=== PATIENT | female | born 1975 | race Caucasian/White ===

== ENCOUNTER 2018-06-08 18:25 | Emergency (ER) | payer OTHER ==
[2018-06-08] MEDS ORDERED: Sodium Chloride 0.9% 1,000 ML IV STA (20:35)
[2018-06-08 21:08] LABS: SQUAMOUS EPITHIAL 10 /hpf (0-5); URINE BACTERIA RARE (<OCC); URINE BILIRUBIN NEGATIVE (NEGATIVE); URINE BLOOD LARGE (NEGATIVE); URINE CLARITY CLOUDY (Clear); URINE COLOR YELLOW (YELLOW); URINE GLUCOSE (UA) NEG (Normal); URINE LEUKOCYTE ESTERASE TRACE Leu/uL (Negative); URINE PROTEIN NEGATIVE (NEGATIVE); URINE UROBILINOGEN 0.2-1.0 mg/dL (0.2-1.0)
[2018-06-08 21:09] LABS: BASO % 0.5 % (0.0-2.0); EOS # 0.2 K/uL (0.0-0.7); EOS % 3.4 % (0.0-4.0); HEMOGLOBIN 14.6 g/dL (12.0-16.0); LYMPH # 1.3 K/uL (1.0-4.3); LYMPH % 24.3 % (20.0-40.0); MEAN CELL VOLUME 93.7 fl (81.0-99.0); MEAN CORPUSCULAR HEMOGLOBIN 31.9 pg (27.0-31.0); MEAN CORPUSCULAR HGB CONC 34.1 g/dL (33.0-37.0); MEAN PLATELET VOLUME 6.8 fl (7.2-11.7); MONO # 0.6 K/uL (0.0-0.8); MONO % 11.5 % (0.0-10.0); NEUT # 3.2 K/uL (1.8-7.0); NEUT % 60.3 % (50.0-75.0); RBC 4.57 Mil/uL (3.80-5.20); RED CELL DISTRIBUTION WIDTH 13.2 % (11.5-14.5); WHITE BLOOD COUNT 5.3 K/uL (4.8-10.8)
[2018-06-08 21:10] LABS: VENOUS BLOOD GAS BASE EXCESS 0.8 mmol/L (0.0-2.0); VENOUS BLOOD GAS PCO2 39 mmHg (40-60); VENOUS BLOOD GAS PO2 38 mm/Hg (30-55); VENOUS BLOOD PH 7.42 (7.32-7.43)
[2018-06-08 21:18] LABS: BLOOD UREA NITROGEN 13 mg/dl (7-17); CALCIUM 9.3 mg/dL (8.4-10.2); GFR NON-AFRICAN AMERICAN > 60
--- NOTE | 2018-06-08 21:39 | ED PDOC ---
HPI: Back Time Seen by Provider: 06/08/18 20:01 Chief Complaint (Nursing): Back Pain Chief Complaint (Provider): Back Pain History Per: Patient History/Exam Limitations: no limitations Onset/Duration Of Symptoms: Days (x6) Current Symptoms Are (Timing): Still Present Additional Complaint(s): 43 year old female arrives to ED with complaints of bodyaches, chills, subjective fever, stabbing lower back pain bilaterally and abdominal pain described as "twisting" since 06/02/18. Patient was seen at an Urgent Care on 3 days ago and prescribed Levaquin once daily to treat a UTI. Subsequently, she reports minimal relief after 3 days of use, thus, prompting ED visit. Presently , she denies any fever, chills, or urinary complaints and states she only feels better with Dilaudid. PMD: none provided Past Medical History Reviewed: Historical Data, Nursing Documentation, Vital Signs Vital Signs: Last Vital Signs Temp 99.7 F H 06/08/18 18:50 Pulse 89 06/08/18 18:50 Resp 18 06/08/18 18:50 BP 127/84 06/08/18 18:50 Pulse Ox 98 06/08/18 18:50 - Medical History PMH: No Chronic Diseases - Surgical History Surgical History: No Surg Hx - Family History Family History: States: Unknown Family Hx - Home Medications Home Medications: Ambulatory Orders Medication Instructions Recorded Cyclobenzaprine [Cyclobenzaprine 10 mg PO BID #15 tab 06/08/18 HCl] Ketorolac Tromethamine [Toradol] 10 mg PO BID #20 tab 06/08/18 traMADol [Ultram] 50 mg PO TID #12 tab 06/08/18 - Allergies Allergies/Adverse Reactions: Allergies Allergy/AdvReac Type Severity Reaction Status Date / Time [place] Allergy ANAPHYLAXIS Verified 06/08/18 18:50 Sulfa (Sulfonamide Allergy ANAPHYLAXIS Verified 06/08/18 18:50 Antibiotics) Review of Systems ROS Statement: Except As Marked, All Systems Reviewed And Found Negative Constitutional: Positive for: Fever, Chills (subjective), Other (bodyaches) Gastrointestinal: Positive for: Abdominal Pain ("twisting") Genitourinary Female: Negative for: Dysuria, Frequency, Incontinence, Hematuria Musculoskeletal: Positive for: Back Pain (lower bilaterally) Physical Exam - Reviewed Nursing Documentation Reviewed: Yes Vital Signs Reviewed: Yes - Physical Exam Appears: Positive for: No Acute Distress Head Exam: Positive for: ATRAUMATIC, NORMAL INSPECTION, NORMOCEPHALIC Skin: Positive for: Normal Color Eye Exam: Positive for: Normal appearance ENT: Positive for: Normal ENT Inspection, TM Is/Are (nonbulging/nonerythematous bilaterally). Negative for: Pharyngeal Erythema, Tonsillar Exudate, Tonsillar Swelling Neck: Positive for: Normal Cardiovascular/Chest: Positive for: Regular Rate, Rhythm, Chest Non Tender. Negative for: Murmur Respiratory: Positive for: Normal Breath Sounds. Negative for: Wheezing, Respiratory Distress Gastrointestinal/Abdominal: Positive for: Soft, Tenderness (diffusely with minimal palpation) Back: Positive for: Normal Inspection. Negative for: L CVA Tenderness, R CVA Tenderness Extremity: Positive for: Normal ROM (upper/lower) Neurologic/Psych: Positive for: Alert, Oriented. Negative for: Motor/Sensory Deficits - Laboratory Results Result Diagrams: 06/08/18 20:55 06/08/18 20:55 - ECG O2 Sat by Pulse Oximetry: 98 (RA) Pulse Ox Interpretation: Normal Medical Decision Making Medical Decision Making: A/P: 43 year old female presenting with abdominal and back pain in setting of recent diagnosis of UTI. Consider possible failure of outpatient care. Consider possible pathologies including diverticulitis, colitis or other abdominal abnormalities. Initial Plan: * Labs * CT ABD/pelvis with IV contrast * IV fluids * Toradol 30mg IVP * Blood culture * Urine culture [address] CT shows nonacute findings. Patient feeling better. Patient asking for pain medication so she can sleep at night. Advised patient that she can try tramadol and warned against addictive potential, patient understood risks. Patient contracted for safe usage of narctoics. Patient discharged in well appearing condition. Scribe Attestation: Documented by Mariana Rendon, acting as a scribe for Srikanth Hernández MD. Provider Scribe Attestation: All medical record entries made by the Scribe were at my direction and personally dictated by me. I have reviewed the chart and agree that the record accurately reflects my personal performance of the history, physical exam, medical decision making, and the department course for this patient. I have also personally directed, reviewed, and agree with the discharge instructions and disposition. Disposition - Clinical Impression Clinical Impression: Viral illness - Disposition Referrals: [facility] [Outside] Disposition: Routine/Home Disposition Time: 00:00 Condition: STABLE Prescriptions: Cyclobenzaprine [Cyclobenzaprine HCl] 10 mg PO BID #15 tab Ketorolac Tromethamine [Toradol] 10 mg PO BID #20 tab traMADol [Ultram] 50 mg PO TID #12 tab Instructions: Viral Syndrome (DC), Liver Hemangioma, Taking Narcotics Safely, Mesenteric Lymphadenitis Forms: [facility] (Bangladeshi)
[2018-06-08] MEDS ORDERED: Sodium Chloride 0.9% 50 ML IV ONE (22:20)
[2018-06-08] MEDS ORDERED: Iohexol 300 100 ML IJ ONE (22:20)
[2018-06-09 00:11] VITALS: BP 107/60; PULSE 76; RESP 15; TEMP 98.3
--- NOTE | 2018-06-09 13:51 | CT ---
Date of service: 06/08/2018 PROCEDURE: CT Abdomen and Pelvis with contrast HISTORY: recently diagnosed UTI, back pain COMPARISON: No priors TECHNIQUE: Contrast dose: 90 milliliters Radiation dose: Total exam DLP = 626 mGy-cm. This CT exam was performed using one or more of the following dose reduction techniques: Automated exposure control, adjustment of the mA and/or kV according to patient size, and/or use of iterative reconstruction technique. FINDINGS: LOWER THORAX: Unremarkable. LIVER: Evaluation of the liver reveals mild fatty infiltration. In the posterior segment of the right lobe of the liver on images 43 through 51 series 3 there is evidence of a hypodense lesion with peripheral vascular filling. Lesion measures 2.1 x 2.5 by 1.9 centimeters. Imaging findings are most characteristic of hemangioma. No prior studies are available for comparison. This area could be followed with ultrasound as clinically indicated. No other focal lesions are seen in the liver. No intrahepatic ductal dilatation is noted. GALLBLADDER AND BILE DUCTS: Unremarkable. PANCREAS: Unremarkable. No gross lesion or ductal dilatation. SPLEEN: Unremarkable. ADRENALS: Unremarkable. No mass. KIDNEYS AND URETERS: Unremarkable. No hydronephrosis. No solid mass. VASCULATURE: Unremarkable. No aortic aneurysm. BOWEL: Unremarkable. No obstruction. No gross mural thickening. APPENDIX: Normal appendix. PERITONEUM: Unremarkable. No free fluid. No free air. LYMPH NODES: A few minimally prominent mesenteric lymph nodes are noted which may suggest mild mesenteric adenitis. BLADDER: Unremarkable. REPRODUCTIVE: Uterus is normal in size and outline. IUD is noted centrally within the region of the uterine canal and in normal anatomic position. Within the left adnexa there are a few small left ovarian probable low-density cysts, 1 of which has some mild peripheral high density enhancement probably reflecting an involuting follicle. Minimal physiologic fluid is seen in the pelvis. No right adnexal masses are noted. BONES: No acute fracture. OTHER FINDINGS: None. IMPRESSION: No appreciable acute inflammatory process in the abdomen or pelvis. No CT scan evidence of pyelonephritis or cystitis. Small left ovarian follicular cyst, 1 of which may reflect involuting follicular cyst. No CT scan evidence of appendicitis. Hypodense lesion with possible small peripheral filling more than likely representing hemangioma. Follow-up ultrasound 4-6 months may prove helpful for further evaluation. This agrees with preliminary report provided by the on-call radiologist.
[2018-06-10 05:59] VITALS: O2SAT 98
== END 2018-06-09 00:10 | disposition home or self-care (01) ==
LOC: H.ER 18:25
DX: B34.9 Viral infection, unspecified (principal); N39.0 Urinary tract infection, site not specified
CPT/HCPCS: 74177; 80048; 81003; 81025; 82803; 85025; 87040; 87086; 96361; 96374; 99283; J1885; J7030; Q9967